=== PATIENT | female | born 2000 | race Asian ===

== ENCOUNTER 2024-04-11 17:55 | Emergency (ER) | payer BC, OTHER ==
--- NOTE | 2024-04-11 18:21 | ED.PDOC ---
History of Present Illness Time Seen by MD: 18:13 Allergies: Coded Allergies: Amoxicillin (Verified Allergy, Unknown, HIVES, 04/12/24) Home Meds Active Scripts Levofloxacin Hemihydrate (LEVOFLOXACIN) 750 Mg Tab, 750 MG PO DAILY for 7 Days, #7 TAB Prov:ADI HOOD RESIDENT 04/14/24 Departure 1 Departure Time of Disposition: 18:20 Impression: Primary Impression: Pneumothorax Comments 23-year-old female transferred from [place] with trace pneumothorax on CT scan, influenza A positive. Patient admitted for further treatment, evaluation and monitoring. REYNA GEORGE MD Apr 11, 2024 18:21
--- NOTE | 2024-04-11 18:59 | DVH ---
CHEST RADIOGRAPH Indication: Pneumothorax Technique: Frontal and lateral view of the chest was obtained Comparison: None FINDINGS: Lines and Tubes: None Lungs: Clear Pleura: No effusion. No pneumothorax. Cardiomediastinal contours: Unremarkable Bones: Unremarkable IMPRESSION: 1. No evidence of acute disease. 2. Further assessment could be performed with expiration film if clinically indicated.
== END 2024-04-11 18:22 | disposition home or self-care (01) ==
LOC: EDBD 17:55 → ER 18:02
DX: R06.02 Shortness of breath (principal); Z53.21 Procedure and treatment not carried out due to patient leaving prior to being seen by health care provider
CPT/HCPCS: 71046

== ENCOUNTER 2024-04-11 18:05 | Inpatient (IN) | payer BC, OTHER ==
[~2024-04-11] VITALS: Ht 160 cm; Wt 81.4 kg
[2024-04-11 18:05] VITALS: PULSE 81; RESP 12; O2SAT 98
--- NOTE | 2024-04-11 18:44 | ED.PDOC ---
History of Present Illness HPI Comments 23-year-old female who presented to [facility] with 1 day of shortness of breath and cough. She denied any chest pain. A CT angio was performed to rule out pulmonary embolism and patient was found to have a trace left-sided pneumothorax. Patient denies any significant past medical history. No history of lung disease. No history of pneumothorax in the past. Patient was transferred to [facility] for further treatment. Chief Complaint: Shortness of Breath Time Seen by MD: 18:37 Mode of Arrival: EMS Physical Exam General: Awake, alert and oriented. No acute distress. Skin: Skin in warm, dry and intact. Appropriate color for ethnicity. HEENT: Nasal cannula in place. The head is normocephalic and atraumatic. Conjunctivae are clear without exudates or hemorrhage. Sclera is non-icteric. EOM are intact. No signs of nystagmus. Eyelids are normal in appearance without swelling or lesions. Oral mucosa is pink and moist Neck: The neck is supple with normal range of motion. No JVD. Cardiac: Heart rate and rhythm are normal. No murmurs, gallops, or rubs are auscultated. Respiratory: No signs of respiratory distress. Lung sounds are clear in all lobes bilaterally without rales, ronchi, or wheezes. Abdominal: Abdomen is soft, non-tender without distention. Bowel sounds are present and normoactive in all four quadrants. Extremities: Upper and lower extremities are atraumatic in appearance without deformity or edema. Neurological: The patient is awake, alert and oriented to person, place, and time with normal speech. Speech is clear. There is no facial asymmetry. Psychiatric: Appropriate mood and affect. Good judgement and insight. No visual or auditory hallucinations. Review of Systems: REVIEW OF SYSTEMS: No fever, no chills, or fatigue HEENT: No sore throat, no earache, no congestion, no neck pain. Cardiac: No chest pain. No palpitations. Lungs: Positive shortness of breath, positive cough. GI: No nausea, no vomiting, no diarrhea, no constipation, no abdominal pain : No dysuria, frequency, or urgency. No hematuria. Musculoskeletal: No joint pain , no joint swelling, no extremity edema. Skin: No rash, no itching. Neuro: No headache, no dizziness, no weakness Was a procedure done? Was a procedure done?: No Differential Dx Considerations may include: Hypoxia, tension pneumothorax, spontaneous pneumothorax, Time of 1ST Reevaluation: 19:23 Reevaluation 1ST: Unchanged Patient Education/Counseling: Diagnosis, Treatment, Other (Need for admission) Family Education/Counseling: No Family Present Departure 1 Departure Time of Disposition: 18:39 Impression: Primary Impression: Pneumothorax Disposition: ADMITTED INPATIENT Condition: Stable Comments 23-year-old female transferred from [facility] with trace left pneumothorax and influenza infection. Notes, lab reports, imaging, EKG records from [facility] from today reviewed. No concerning abnormal results other than the influenza and trace pneumothorax. We will repeat chest x-ray to ensure no increase in size of the pneumothorax, Patient admitted for further treatment, evaluation and monitoring. REYNA GEORGE MD Apr 11, 2024 18:43
[2024-04-11 19:25] VITALS: O2SAT 98
--- NOTE | 2024-04-11 21:13 | DVHHPRES ---
History of Present Illness Resident Creating Document: JM CALLAHAN RESIDENT History of Present Illness Patient is a 24-year-old female with no significant past medical history who came in due to left upper quadrant pain and shortness of breaths that has been ongoing for the past 3 days. According to the patient, left upper quadrant pain 10/10 in intensity, constant in nature and stabbing in character, pain is worsened with deep inspiration. Denies having similar symptoms in the past. Patient also notes having flu-like symptoms including cough and fever for the past 1 week, sick contacts including multiple family members. Per patient, she had 3 episodes of vomiting with the most recent episode this morning containing blood in the vomitus. Patient was transferred from the [facility] where [facility] CT angio she was noted to have pneumomediastinum extending superiorly into the lower neck with suspected trace right pneumothorax, patchy left lower lobe airspace opacities & right upper lobe pulmonary nodule, most likely representing sequelae of infectious process: Differential include pneumonia, atypical pneumonia, viral chest and reactive airway disease. Past Medical History Denies Past Surgical History Cholecystectomy Past Social History Smoking: Patient currently uses vape for the past 7 years, prior to that was smoking for at least 1-2 years: 1 pack of cigarettes per day. Alcohol: Quit 3 weeks ago, prior to that was drinking every weekend 2-3 drinks Drugs: Denies Review of Systems Constitutional: Yes: Fever, Chills, Malaise; No: Sweats, Weakness, Other Eyes: No: Pain, Vision change, Conjunctivae inflammation, Eyelid inflammation, Other, Redness ENT: Nose discharge, Nose congestion, Throat pain; No: Ear pain, Ear discharge, Nose pain, Mouth pain, Mouth swelling, Throat swelling, Other Respiratory: Cough, Shortness of breath, SOB with excertion; No: Dry, Wheezing, Hemoptysis, Pleuritic Pain, Sputum, Wheezing, Other Cardiovascular: No: Chest Pain, Palpitations, Orthopnea, Paroxysmal Noc. Dyspnea, Edema, Lt Headedness, Other Gastrointestinal: Vomiting; No: Nausea, Abdominal Pain, Diarrhea, Constipation, Melena, Hematochezia, Other Genitourinary: No Dysuria, No Frequency, No Incontinence, No Hematuria, No Re tention, No Other Musculoskeletal: No: other, neck pain, shoulder pain, arm pain, back pain, hand pain, leg pain, foot pain Skin: No: Rash, Lesions, Jaundice, Bruising, Other Neurological: No: Weakness, Numbness, Incoordination, Change in speech, Confusion, Seizures, Other Allergies: Coded Allergies: Penicillins (Verified Allergy, Unknown, 04/11/24) Exam Vital Signs Vital Signs Date Time Temp Pulse Resp B/P (MAP) Pulse Ox O2 Delivery O2 Flow Rate FiO2 04/11/24 19:55 72 04/11/24 18:05 12 98 Nasal Cannula* 3 32 04/11/24 18:05 98.5 108/60 (76) 98.5 General Appearance: Alert, Oriented X3, Cooperative, mild distress HEENT: Atraumatic, PERRLA, EOMI, Mucous membr. moist/pink Respiratory: Other (Decreased breath sounds on the right) Cardiovascular: Regular rate, Normal S1, Normal S2, No murmurs Abdominal: Normal bowel sounds, Soft, No tenderness Extremities: No clubbing, No cyanosis, No edema, Normal pulses Skin: No rashes, No breakdown, No significant lesion Neuro: Normal speech, Strength at 5/5 X4 ext, Sensation intact Psych/Mental Status: Mental status NL, Mood NL Assessment/Plan Assessment/Plan Pneumomediastinum Trace right pneumothorax Possible atypical pneumonia - CT chest abdomen pelvis: Chest: Pneumomediastinum. This could be spontaneous in the setting of alveolar rupture and air dissection from the pulmonary interstitium to the mediastinum in the s etting of increased intrathoracic pressure. Mild bronchial wall thickening which could be infectious or inflammatory bronchitis. Scattered bilateral pulmonary nodules as well as cluster of tree-in-bud nodular opacities in the left lower lobe, likely atypical pneumonia. Abdomen/pelvis: No noncontrast evidence of acute abnormality. - ordered COVID and influenza testing - ordered barium esophagogram - patient NPO - azithromycin Nicotine dependence - counseled Goals of care: Full code, discussed for >16 minutes on 04/11/2024 Plan discussed with patient Plan discussed with Dr. Simpson Plan discussed with: Patient, Other (RN) My Orders Orders - JM CALLAHAN RESIDENT Procedure Category Date Status Time Oxygen By Nasal RT 04/11/24 Transmitted Cannula 21:05 Notify Of Changes BIGG 04/11/24 In Process From Base 21:05 Beta Hcg, Quantitative LAB 04/11/24 Logged 21:05 Electrocardigram EKG 04/11/24 Logged 21:05 Npo (Nothing By DIET 04/12/24 Transmitted Mouth) Diet Breakfast Complete Blood Count LAB 04/11/24 Logged 21:05 Basic Metabolic Panel LAB 04/11/24 Logged 21:05 Urinalysis LAB 04/11/24 Logged 21:05 Drug Screen LAB 04/11/24 Logged 21:05 Erythrocyte LAB 04/11/24 Logged Sedimentation Rate 21:05 C-Reactive Protein LAB 04/11/24 Logged 21:05 Thyroid Stimulating LAB 04/11/24 Logged Hormone 21:05 B-Type Natriuretic LAB 04/11/24 Logged Peptide 21:05 Rapid Influenza A&B LAB 04/11/24 Logged 21:05 Covid19 Antigen Priya LAB 04/11/24 Logged Admit ADMIT 04/11/24 Transmitted 21:12 Date of Service: Apr 11, 2024 Billing Provider: NICK SIMPSON MD Common Visit Codes: [id number] INP/OBS CARE (HIGH) JM CALLAHAN RESIDENT Apr 11, 2024 21:13 NICK SIMPSON MD Apr 12, 2024 09:06
[2024-04-11 21:37] LABS: Basophils # (auto) 0 10 ^3/uL (0-0.2); Basophils % (auto) 0.2 % (0.0-2.0); Eosinophils # (auto) 0.1 10 ^3/uL (0-0.8); Eosinophils % (auto) 0.6 % (0.0-7.0); Hematocrit 37.1 % (36.0-46.0); Hemoglobin 12.5 g/dL (12.2-16.2); Lymphocytes # (auto) 3.1 10 ^3/uL (0.4-5.4); Mean Corpuscular Hemoglobin 29.6 pg (28.0-32.0); Mean Corpuscular Hgb Conc. 33.7 g/dL (32.0-36.0); Mean Corpuscular Volume 87.8 fL (80.0-100.0); Monocytes # (auto) 0.8 10 ^3/uL (0-1.3); Monocytes % (auto) 7.8 % (0.0-12.0); Neutrophils # (auto) 5.8 10 ^3/uL (1.6-8.6); Neutrophils % (auto) 59.4 % (37.0-80.0); Nucleated Red Blood Cells % 0.1 %; Platelet Count (auto) 199 10^3/uL (140-450); Red Blood Cells 4.23 10^6/uL (4.0-5.20); White Blood Cell 9.8 10^3/uL (4.4-10.8)
[2024-04-11 21:47] LABS: Potassium 3.6 mmol/L (3.5-5.1); Sodium 141 mmol/L (136-145)
[2024-04-11 21:48] LABS: Anion Gap 8 (5-15); Calcium 8.8 mg/dL (8.7-10.4); Carbon Dioxide 24 mmol/L (20-31)
[2024-04-11 21:53] LABS: Glucose 81 mg/dL (74-106)
[2024-04-11 21:54] LABS: CRP High Sensitivity 0.98 mg/dL (<1.0)
[2024-04-11 22:01] LABS: Chloride 109 mmol/L (98-107)
[2024-04-11 22:02] LABS: Blood Urea Nitrogen 8 mg/dL (9-23)
[2024-04-11 22:07] LABS: Thyroid Stimulating Hormone 0.6 uIU/mL (0.55-4.78)
[2024-04-11 22:17] LABS: COVID19 ANTIGEN SOFIA FIA NEGATIVE (NEGATIVE); Rapid Influenza A Negative (Negative); Rapid Influenza B Negative (Negative)
[2024-04-11 22:17] LABS: Beta HCG, Quantitative 0.6 mIU/mL (1.5-4.2)
[2024-04-11 22:44] LABS: Erythrocyte Sedimentation Rate 25 mm/hr (0-20)
[2024-04-12] VITALS (14 sets, daily range): BP systolic 96–109; BP diastolic 55–72; PULSE 60–77; RESP 14–18; TEMP 97.6–98.6; O2SAT 96–100
--- NOTE | 2024-04-12 01:15 | DVH ---
CLINICAL HISTORY: pnemomediastinum TECHNIQUE: CT of the chest, abdomen and pelvis was performed without IV contrast. This exam was perf ormed according to our departmental dose optimization program. Up-to-date CT equipment and radiation dose reduction techniques are utilized as appropriate. [[employer]imetric[employer] Exposure Report] CTDI: 15.75 DLP: 1087 COMPARISON: None FINDINGS: CHEST FINDINGS: Lower Neck: Pneumomediastinum extending into the lower neck Axilla, Mediastinum and Dorothy: There is pneumomediastinum. There is no axillary or mediastinal lymphad enopathy. Residual thymic tissue in the anterior mediastinum. Limited evaluation of the dorothy in the absence of intravenous contrast. Heart and Great Vessels: Trachea and central airways are patent. Mild bronchial wall thickening. Line ar scarring or atelectasis in the lingula. Scattered nodules are seen in both lungs as well as a clus ter of tree-in-bud nodular opacities in the left lower lobe. No pleural effusion or pneumothorax. Airway, Lungs and Pleura: No destructive osseous lesion. No acute abnormality. Chest Wall and Osseous Structures: Unremarkable. Abdomen and Pelvis Findings: Liver and Biliary system: Prior cholecystectomy. Otherwise unremarkable. Spleen: Unremarkable. Adrenal Glands and Kidneys: Unremarkable. Excretion of contrast into the bilateral renal collecting systems Pancreas and Retroperitoneum: Unremarkable. Aorta and Major Vessels: Unremarkable. Bowel, Mesentery and Peritoneal space: Normal caliber small and large bowel. Normal appendix. No free air or fluid collection. Pelvis: There is a tampon in the vagina. The uterus and ovaries are grossly unremarkable. Urinary bety dder is filled with excreted contrast. There is no pelvic lymphadenopathy. Abdominal wall and Osseous Structures: No destructive osseous lesion. IMPRESSION: Chest: * Pneumomediastinum. This could be spontaneous in the setting of alveolar rupture and air dissection from the pulmonary interstitium to the mediastinum in the setting of increased intrathoracic pressure . * Mild bronchial wall thickening which could be infectious or inflammatory bronchitis. * Scattered bilateral pulmonary nodules as well as cluster of tree-in-bud nodular opacities in the le ft lower lobe, likely atypical pneumonia. Abdomen/pelvis: * No noncontrast evidence of acute abnormality.
--- NOTE | 2024-04-12 09:27 | DVH ---
XY ESOPHAGUS GASTROGRAFIN SWALLOW, HISTORY: ESOPHAGEAL RUPTURE COMPARISON: None PROCEDURE: A care management assistant radiograph was obtained prior to the procedure. Gastrografin. administered orally , and radiographs were obtained under intermittent fluoroscopic observation. Total fluoroscopic time was 1.0. DAP 292. FINDINGS: The esophagus was normal in caliber with no stricture, filling defect or wall irregularity demonstrat ed. Normal esophageal peristalsis was observed. No esophageal reflux was demonstrated during this exam despite provocative maneuvers. IMPRESSION: Normal esophagram. Limited exam due to patient coughing and gagging when drinking contrast material.
[2024-04-12] MEDS ORDERED: ALBUTEROL SULF 2.5 MG/0.5ML(0.5%) NEB SOLN NEB SCH (10:00)
[2024-04-12] MEDS: cefTRIAXone 1GM/50ML D5W 50 ML IV SCH (11:54)
[2024-04-12] MEDS: AZITHROMYCIN 500MG/ 250ML 250 ML IV SCH (12:02)
[2024-04-12] MEDS: ALBUTEROL SULF 2.5 MG/0.5ML(0.5%) NEB SOLN NEB SCH (14:24)
[2024-04-12] MEDS ORDERED: HYDROcodone-ACET 5/325MG TAB PO PRN (14:45)
[2024-04-12] MEDS ORDERED: ACETAMINOPHEN 325 MG TAB PO PRN (14:45)
--- NOTE | 2024-04-12 15:01 | DVHPNRES ---
Progress Note Date Seen: Apr 12, 2024 Resident Creating Document: ADI HOOD RESIDENT Has the PT tested + for MRSA If YES, has PT been informed?: No Medical Necessity Reason Pt with a Central, PICC or Fol: No Subjective Review of Systems A 24-year-old female with no significant past medical history who came in due to left upper quadrant pain and shortness of breaths that has been ongoing for the past 3 days. According to the patient, left upper quadrant pain 10/10 in intensity, constant in nature and stabbing in character, pain is worsened with deep inspiration. Denies having similar symptoms in the past. Patient also notes having flu-like symptoms including cough and fever for the past 1 week, sick contacts including multiple family members. Per patient, she had 3 episodes of vomiting with the most recent episode this morning containing blood in the vomitus. Patient was transferred from the [facility] where on CT angio she was noted to have pneumomediastinum extending superiorly into the lower neck with suspected trace right pneumothorax, patchy left lower lobe airspace opacities & right upper lobe pulmonary nodule, most likely representing sequelae of infectious process: Differential include pneumonia, atypical pneumonia, viral chest and reactive airway disease. Past Medical History Denies Past Surgical History Cholecystectomy Past Social History Smoking: Patient currently uses vape for the past 7 years, prior to that was smoking for at least 1-2 years: 1 pack of cigarettes per day. Alcohol: Quit 3 weeks ago, prior to that was drinking every weekend 2-3 drinks Drugs: Denies Objective vital signs Vital Sign Date Time Temp Pulse Resp B/P (MAP) Pulse Ox O2 Delivery O2 Flow Rate FiO2 04/12/24 14:30 77 16 100 04/12/24 14:24 Nasal Cannula 0.5 04/12/24 14:24 24 04/12/24 13:00 98.0 101/61 (74) 98.0 Total Intake and Output 04/11/24 04/11/24 04/12/24 15:00 23:00 07:00 Intake Total 0 ml Balance 0 ml medications Current Medications Medications Dose Ordered Sig/Alexsandra Route Start Time Stop Time Status Last Admin Dose Admin Azithromycin 250 ml @ 125 mls/hr DAILY IV 04/12/24 10:00 04/12/24 12:02 125 MLS/HR Ceftriaxone Sodium 50 ml @ 100 mls/hr DAILY@09 IV 04/12/24 09:00 Albuterol 2.5 mg Q8HR NEB 04/12/24 14:00 04/12/24 14:24 2.5 MG Acetaminophen 650 mg Q6HP PRN PO 04/12/24 14:45 UNV Acetaminophen/ Hydrocodone Bitart 1 tab Q4HPRN PRN PO 04/12/24 14:45 UNV Examination General Appearance: Alert, Oriented X3, Cooperative, mild distress HEENT: Atraumatic, PERRLA, EOMI, Mucous membr. moist/pink Respiratory: Other (Decreased breath sounds on the right) Cardiovascular: Regular rate, Normal S1, Normal S2, No murmurs Abdominal: Normal bowel sounds, Soft, No tenderness Extremities: No clubbing, No cyanosis, No edema, Normal pulses Skin: No rashes, No breakdown, No significant lesion Neuro: Normal speech, Strength at 5/5 X4 ext, Sensation intact Psych/Mental Status: Mental status NL, Mood NL laboratory and microbiology Laboratory Tests 04/11/24 21:30 Test 04/11/24 21:30 Range/Units Serum Glucose 81 74-106 mg/dL Problem List/Assessment/Plan Problem List/Assessment/Plan #Pneumomediastinum #Trace right pneumothorax #Possible atypical pneumonia O2 at 2 lt please dont titrate down: is for reabsorption of the pneumothorax and pneumomediastinum - CT chest abdomen pelvis: Chest: Pneumomediastinum. This could be spontaneous in the setting of alveolar rupture and air dissection from the pulmonary interstitium to the mediastinum in the setting of increased intrathoracic pressure. Mild bronchial wall thickening which could be infectious or inflammatory bronchitis. Scattered bilateral pulmonary nodules as well as cluster of tree-in-bud nodular opacities in the left lower lobe, likely atypical pneumonia. Abdomen/pelvis: No noncontrast evidence of acute abnormality. COVID and influenza testing: negative Barium esophagogram: negative no rupture regular diet Continue azithromycin Pulmonology consult placed Breathing treatments Nicotine dependence - counseled Goals of care: Full code, discussed for >16 minutes on 04/11/2024 Plan discussed with patient Plan discussed with Dr. Sanz Plan discussed with: Patient, Other (rn) My Orders My Orders Orders - ADI HOOD RESIDENT Procedure Category Date Status Time Azithromycin 500mg/ PHA 04/12/24 In Process 250ml (Zithromax 50 10:00 Ceftriaxone 1gm/50ml PHA 04/12/24 In Process D5w (Rocephin) 09:00 Albuterol Medneb PHA 04/12/24 In Process (Ventolin Medneb) 14:00 *Consult CONS 04/12/24 Transmitted / 09:50 Regular Diet DIET 04/12/24 Transmitted Lunch Acetaminophen Tablet PHA 04/12/24 Logged (Tylenol Tablet) 14:45 Hydrocodone-Acet PHA 04/12/24 Logged 5/325mg Tab ([place] 14:45 Date of Service: Apr 12, 2024 Billing Provider: EDOUARD SANZ MD Common Visit Codes: [id number] INP/OBS CARE(HIGH) ADI HOOD RESIDENT Apr 12, 2024 15:01 EDOUARD SANZ MD Apr 12, 2024 15:38
[2024-04-12 18:18] LABS: Urine Bacteria FEW /hpf (None Seen); Urine Blood 2+ /uL (Negative); Urine Clarity Clear (Clear); Urine Color Yellow (Yellow); Urine Mucus FEW (None Seen); Urine Protein, UAD 1+ (Negative); Urine Specific Gravity 1.033 (1.001-1.035); Urine Squamous Epithelial Cell FEW /hpf (<5); Urine Urobilinogen 2 mg/dL (Negative); Urine WBC 5 /hpf (0 - 5)
[2024-04-12 18:24] LABS: Amphetamine Screen, Urine Neg (NEGATIVE)
[2024-04-12 18:25] LABS: Cannabinoid Screen, Urine Pos (NEGATIVE)
[2024-04-12 18:26] LABS: Barbiturate Scree,Urine Neg (NEGATIVE); Benzodiazephine Screen, Urine Neg (NEGATIVE); Cocaine Screen, Urine Neg (NEGATIVE); Opiate Scree,Urine Neg (NEGATIVE); Phencyclidine Screen, Urine Neg (NEGATIVE)
--- NOTE | 2024-04-12 23:50 | DVHINCON2 ---
Date of service: Apr 12, 2024 Referring Physician Audra Guerrero MD Reason for Consultation Pneumomediastinum, pneumothorax. History of Present Illness A 24-year-old woman with no significant past medical history who presented to ED on 04/11/24 due to left upper quadrant pain and shortness of breath ongoing x3 days. Patient c/o left upper quadrant pain 10/10 in intensity, constant in nature and stabbing in character, worse with deep inspiration. Denied similar symptoms in the past. Patient also c/o flu-like symptoms including cough and fever for the past 1 week, sick contacts including multiple family members. Per patient, she had 3 episodes of vomiting with the most recent episode AM of presentation, containing blood in the vomitus. Patient was transferred from the [facility] where on CT angio she was noted to have pneumomediastinum extending superiorly into the lower neck with suspected trace right pneumothorax, patchy left lower lobe airspace opacities & right upper lobe pulmonary nodule, most likely representing sequelae of infectious process: Differential includes pneumonia, atypical pneumonia, viral chest and reactive airway disease. Patient was admitted for further care and pulmonary consultation is requested for evaluation and management due to the above findings. Review of Systems: 14-point review of systems negative unless otherwise noted above. Past Medical History: Denies Past Surgical History: Cholecystectomy Medications: Reviewed. Allergies: Amoxicillin Family History: Diabetes Social History: Smoking: Currently vaping for the past 7 years, prior to that was smoking for at least 1-2 years (1 pack of cigarettes per day). Alcohol: Quit 3 weeks ago, prior to that was drinking every weekend 2-3 drinks No illicit drug use. Family History: Diabetes mellitus G8 FATHER Allergies: Coded Allergies: Amoxicillin (Verified Allergy, Unknown, HIVES, 04/12/24) Home Meds No Active Prescriptions or Reported Meds Current Medications Current Medications Medications (Trade) Dose Ordered Sig/Alexsandra Route PRN Reason Start Time Stop Time Status Last Admin Azithromycin 250 ml @ 125 mls/hr DAILY IV 04/12/24 10:00 04/12/24 12:02 Albuterol (Ventolin Medneb) 2.5 mg Q8HR NEB 04/12/24 10:00 04/12/24 09:00 DC Ceftriaxone Sodium 50 ml @ 100 mls/hr DAILY@09 IV 04/12/24 09:00 04/12/24 14:58 DC Albuterol (Ventolin Medneb) 2.5 mg Q8HR NEB 04/12/24 14:00 04/12/24 22:26 Acetaminophen (Tylenol Tablet) 650 mg Q6HP PRN PO MILD PAIN (1-3 PAIN SCALE) 04/12/24 14:45 Acetaminophen/ Hydrocodone Bitart ([place] 5/325MG Tab) 1 tab Q4HPRN PRN PO MODERATE PAIN (4-6 PAIN SCALE) 04/12/24 14:45 Vital Signs Vital Signs Date Time Temp Pulse Resp B/P (MAP) Pulse Ox O2 Delivery O2 Flow Rate FiO2 04/12/24 22:36 67 18 100 04/12/24 22:29 Nasal Cannula 2.0 04/12/24 22:29 28 04/12/24 21:00 98.0 105/55 (72) 98.0 Physical Exam Gen.: Patient lying in bed in no apparent distress. On supplemental oxygen. Head: Normocephalic, atraumatic. Eyes: EOMI/PERRLA. Ears: Normal hearing. Normal anatomy. Neck/trachea: Trachea midline, supple. Nose: Normal external anatomy. Mouth: Moist mucous membranes. Chest: Decreased air entry bilaterally. No wheezing or rhonchi. Cardiovascular: Positive S1, positive S2. Regular rate and rhythm. Abdomen: Positive bowel sounds in all 4 quadrants. Soft, non-tender, non- distended. : Deferred. Rectal: Deferred. Skin: Warm, dry. Intact. Extremities: 2+ radial pulses bilaterally. No lower extremity edema. Neuro: Awake, alert, oriented x3. No gross motor or sensory deficits. Cranial nerves II through XII intact. Gait not assessed. Labs/Diagnostic Data Labs Test 04/12/24 17:51 04/11/24 21:50 04/11/24 21:30 Range/Units Urine Color Yellow Yellow Urine Clarity Clear Clear Urine pH 6.0 5.0-9.0 Urine Specific [place] 1.033 1.001-1.035 Urine Protein 1+ H Negative Urine Ketones 4+ H Negative Urine Blood 2+ H Negative /uL Urine Nitrite Negative Negative Urine Bilirubin Negative Negative Urine Urobilinogen 2 H Negative mg/dL Urine Leukocyte Esterase Negative Negative /uL Urine RBC 2 0 - 4 /hpf Urine WBC 5 0 - 5 /hpf Urine Squamous Epithelial Cells Few <5 /hpf Urine Bacteria Few H None Seen /hpf Urine Mucus Few None Seen Urine Glucose Normal Normal mg/dL Urine Opiates Screen Neg NEGATIVE Urine Fentanyl Screen Neg NEGATIVE Urine Barbiturates Screen Neg NEGATIVE Urine Phencyclidine Screen Neg NEGATIVE Urine Amphetamines Screen Neg NEGATIVE Urine Benzodiazepines Screen Neg NEGATIVE Urine Cocaine Screen Neg NEGATIVE Urine Cannabinoids Screen Pos NEGATIVE Influenza Type A Antigen Negative Negative Influenza Type B Antigen Negative Negative SARS-CoV-2 Antigen (Rapid) Negative NEGATIVE White Blood Count 9.8 4.4-10.8 10^3/uL Red Blood Count 4.23 4.0-5.20 10^6/uL Hemoglobin 12.5 12.2-16.2 g/dL Hematocrit 37.1 36.0-46.0 % Mean Corpuscular Volume 87.8 80.0-100.0 fL Mean Corpuscular Hemoglobin 29.6 28.0-32.0 pg Mean Corpuscular Hemoglobin Concent 33.7 32.0-36.0 g/dL Red Cell Distribution Width 14.0 11.8-14.3 % Platelet Count 199 140-450 10^3/uL Mean Platelet Volume 9.5 6.9-10.8 fL Neutrophils (%) (Auto) 59.4 37.0-80.0 % Lymphocytes (%) (Auto) 32.0 10.0-50.0 % Monocytes (%) (Auto) 7.8 0.0-12.0 % Eosinophils (%) (Auto) 0.6 0.0-7.0 % Basophils (%) (Auto) 0.2 0.0-2.0 % Neutrophils # (Auto) 5.8 1.6-8.6 10 ^3/uL Lymphocytes # (Auto) 3.1 0.4-5.4 10 ^3/uL Monocytes # (Auto) 0.8 0-1.3 10 ^3/uL Eosinophils # (Auto) 0.1 0-0.8 10 ^3/uL Basophils # (Auto) 0 0-0.2 10 ^3/uL Nucleated Red Blood Cells 0.1 % Erythrocyte Sedimentation Rate 25 H 0-20 mm/hr Sodium Level 141 136-145 mmol/L Potassium Level 3.6 3.5-5.1 mmol/L Chloride Level 109 H 98-107 mmol/L Carbon Dioxide Level 24 20-31 mmol/L Anion Gap 8 5-15 Blood Urea Nitrogen 8 L 9-23 mg/dL Creatinine 0.73 0.550-1.02 mg/dL Glomerular Filtration Rate Calc 117 >90 mL/min BUN/Creatinine Ratio 11.0 10.0-20.0 Serum Glucose 81 74-106 mg/dL Calcium Level 8.8 8.7-10.4 mg/dL C-Reactive Protein High Sensitivity 0.98 <1.0 mg/dL B-Type Natriuretic Peptide 11.12 0-100 pg/mL Thyroid Stimulating Hormone (TSH) 0.60 0.55-4.78 uIU/mL Beta HCG, Quantitative 0.6 L 1.5-4.2 mIU/mL Assessment Impression: Trace right pneumothorax Pneumomediastinum Nicotine dependence/vaping Possible atypical pneumonia Obesity BMI 31.8 Atypical pneumonia O2 at 2 L for reabsorption of the pneumothorax and pneumomediastinum -please do not titrate down Plan: Supplemental oxygen 2 LPM NC Keep O2 sats between 98-100%. CT chest, abdomen and pelvis: Pneumomediastinum. This could be spontaneous in the setting of alveolar rupture and air dissection from the pulmonary interstitium to the mediastinum in the setting of increased intrathoracic pressure. Mild bronchial wall thickening which could be infectious or inflammatory bronchitis. Scattered bilateral pulmonary nodules as well as cluster of tree-in-bud nodular opacities in the left lower lobe, likely atypical pneumonia. Bronchodilators PRN Continue antibiotics for atypical pneumonia Incentive spirometry Pain control Avoid oversedation Cessation of vaping discussed for more than 10 minutes Monitor renal function. Monitor electrolytes. Supplement as necessary. Monitor ins and outs. DVT prophylaxis. Prognosis: Poor given patient's multiple co-morbidities. Rest of plan per hospitalist and other consultants. Thank you, Dr. Guerrero, for allowing me to participate in this patient's care. Further recommendations will depend on the patient's clinical course. Please do not hesitate to contact me if you have any questions or concerns. This medical document was created using an electronic medical record system with [employer] system. Although these documentations are being carefully reviewed, there may still be some phonetic and typographical changes. The errors are purely typographical, due to imperfection on the software program, and do not reflect any compromise in the patient's medical care. Plan discussed with: Patient, Other (ROGERS Martinez/MD Guerrero) GUS DALE MD Apr 12, 2024 23:50
[2024-04-13] VITALS (15 sets, daily range): BP systolic 90–110; BP diastolic 48–70; PULSE 54–98; RESP 16–19; TEMP 97.6–98; O2SAT 95–100
[2024-04-13] MEDS: guaiFENesin-DM 100/10mg/5ml SYR PO ONE (04:48)
[2024-04-13] MEDS ORDERED: guaiFENesin-DM 100/10mg/5ml SYR PO PRN (14:30)
--- NOTE | 2024-04-13 14:50 | DVHPNRES ---
Progress Note Date Seen: Apr 13, 2024 Resident Creating Document: MELBA ASHLEY RESIDENT Has the PT tested + for MRSA If YES, has PT been informed?: No Medical Necessity Reason Pt with a Central, PICC or Fol: No Subjective Review of Systems A 24-year-old female with no significant past medical history who came in due to left upper quadrant pain and shortness of breaths that has been ongoing for the past 3 days. According to the patient, left upper quadrant pain 10/10 in intensity, constant in nature and stabbing in character, pain is worsened with deep inspiration. Denies having similar symptoms in the past. Patient also notes having flu-like symptoms including cough and fever for the past 1 week, sick contacts including multiple family members. Per patient, she had 3 episodes of vomiting with the most recent episode this morning containing blood in the vomitus. Patient was transferred from the [facility] where on CT angio she was noted to have pneumomediastinum extending superiorly into the lower neck with suspected trace right pneumothorax, patchy left lower lobe airspace opacities & right upper lobe pulmonary nodule, most likely representing sequelae of infectious process: Differential include pneumonia, atypical pneumonia, viral chest and reactive airway disease. Past Medical History: none Past Surgical History: Cholecystectomy Past Social History Smoking: Patient currently uses vape for the past 7 years, prior to that was smoking for at least 1-2 years: 1 pack of cigarettes per day. Alcohol: Quit 3 weeks ago, prior to that was drinking every weekend 2-3 drinks Drugs: Denies Review of systems Patient was seen and examined at the bedside Reports bouts of coughing but otherwise no shortness of breath, chest pain, dizziness, palpitations, headache. Reports that last night she had a couple of episodes of loose stools. Objective vital signs Vital Sign Date Time Temp Pulse Resp B/P (MAP) Pulse Ox O2 Delivery O2 Flow Rate FiO2 04/13/24 14:31 76 16 98 04/13/24 09:00 97.9 90/49 (63) 97.9 04/13/24 07:04 Nasal Cannula* 2 28 Total Intake and Output 04/12/24 04/12/24 04/13/24 15:00 23:00 07:00 Intake Total 250 ml 600 ml 800 ml Balance 250 ml 600 ml 800 ml medications Current Medications Medications Dose Ordered Sig/Alexsandra Route Start Time Stop Time Status Last Admin Dose Admin Azithromycin 250 ml @ 125 mls/hr DAILY IV 04/12/24 10:00 04/13/24 10:26 125 MLS/HR Albuterol 2.5 mg Q8HR NEB 04/12/24 14:00 04/13/24 14:31 2.5 MG Acetaminophen 650 mg Q6HP PRN PO 04/12/24 14:45 Acetaminophen/ Hydrocodone Bitart 1 tab Q4HPRN PRN PO 04/12/24 14:45 Guaifenesin/ Dextromethorphan 10 ml Q6HP PRN PO 04/13/24 14:30 UNV Examination General Appearance: Alert, Oriented X3, Cooperative, mild distress HEENT: Atraumatic, PERRLA, EOMI, Mucous membr. moist/pink Respiratory: Other (Decreased breath sounds on the right) Cardiovascular: Regular rate, Normal S1, Normal S2, No murmurs Abdominal: Normal bowel sounds, Soft, No tenderness Extremities: No clubbing, No cyanosis, No edema, Normal pulses Skin: No rashes, No breakdown, No significant lesion Neuro: Normal speech, Strength at 5/5 X4 ext, Sensation intact Psych/Mental Status: Mental status NL, Mood NL laboratory and microbiology Laboratory Tests 04/11/24 21:30 Test 04/11/24 21:30 Range/Units Serum Glucose 81 74-106 mg/dL Problem List/Assessment/Plan Problem List/Assessment/Plan #Pneumomediastinum #Trace right pneumothorax #Possible atypical pneumonia O2 at 2 lt please dont titrate down: for reabsorption of the pneumothorax and pneumomediastinum - CT chest abdomen/pelvis Chest :Pneumomediastinum. This could be spontaneous in the setting of alveolar rupture and air dissection from the pulmonary interstitium to the mediastinum in the setting of increased intrathoracic pressure. Mild bronchial wall thickening which could be infectious or inflammatory bronchitis. Scattered bilateral pulmonary nodules as well as cluster of tree-in-bud nodular opacities in the left lower lobe, likely atypical pneumonia. Abdomen/pelvis: No noncontrast evidence of acute abnormality. COVID and influenza testing: negative Barium esophagogram: negative no rupture regular diet Continue azithromycin Pulmonology consulted, recommendations followed Breathing treatments as needed robitussin for suppressing cough CT chest with contrast to be done tomorrow in the morning for follow up. Nicotine dependence - counseled Goals of care discussed with the patient for over 19 minutes. Full code Plan discussed with Dr. Rachel Plan discussed with: Patient My Orders My Orders Orders - MELBA ASHLEY Procedure Category Date Status Time Guaifenesin-Dextromet PHA 04/13/24 Logged Liquid (Robitussin 14:[address] 04/14/24 Logged 07:00 Date of Service: Apr 13, 2024 Billing Provider: DARLENE RACHEL MD Common Visit Codes: [id number] INP/OBS CARE(HIGH) MELBA ASHLEY RESIDENT Apr 13, 2024 14:50 DARLENE RACHEL MD Apr 13, 2024 23:12
[2024-04-13] MEDS: guaiFENesin-DM 100/10mg/5ml SYR PO SCH (16:50)
[2024-04-13] MEDS: GASTROGRAFIN 120 ML SOL ONE ×2 (17:13→17:14)
--- NOTE | 2024-04-13 21:24 | DVHPN2 ---
Progress Note - Dictate Date Seen: Apr 13, 2024 Has the PT tested + for MRSA If YES, has PT been informed?: No Medical Necessity Reason Pt with a Central, PICC or Fol: No Subjective Patient seen and examined at bedside. Remains on supplemental oxygen Overnight events reviewed. vital signs Vital Sign Date Time Temp Pulse Resp B/P (MAP) Pulse Ox O2 Delivery O2 Flow Rate FiO2 04/13/24 17:00 98.0 85 18 107/55 (72) 100 98.0 04/13/24 10:00 Nasal Cannula* 2 28 Total Intake and Output 04/12/24 04/12/24 04/13/24 15:00 23:00 07:00 Intake Total 250 ml 600 ml 800 ml Balance 250 ml 600 ml 800 ml medications Current Medications Medications Dose Ordered Sig/Alexsandra Route Start Time Stop Time Status Last Admin Dose Admin Azithromycin 250 ml @ 125 mls/hr DAILY IV 04/12/24 10:00 04/13/24 10:26 125 MLS/HR Albuterol 2.5 mg Q8HR NEB 04/12/24 14:00 04/13/24 19:31 2.5 MG Acetaminophen 650 mg Q6HP PRN PO 04/12/24 14:45 Acetaminophen/ Hydrocodone Bitart 1 tab Q4HPRN PRN PO 04/12/24 14:45 Guaifenesin/ Dextromethorphan 10 ml Q6H PO 04/13/24 15:00 04/13/24 16:50 10 ML objective Gen.: Patient lying in bed in no apparent distress. On supplemental oxygen. Head: Normocephalic, atraumatic. Eyes: EOMI/PERRLA. Ears: Normal hearing. Normal anatomy. Neck/trachea: Trachea midline, supple. Nose: Normal external anatomy. Mouth: Moist mucous membranes. Chest: Decreased air entry bilaterally. No wheezing or rhonchi. Cardiovascular: Positive S1, positive S2. Regular rate and rhythm. Abdomen: Positive bowel sounds in all 4 quadrants. Soft, non-tender, non- distended. : Deferred. Rectal: Deferred. Skin: Warm, dry. Intact. Extremities: 2+ radial pulses bilaterally. No lower extremity edema. Neuro: Awake, alert, oriented x3. No gross motor or sensory deficits. Cranial nerves II through XII intact. Gait not assessed laboratory and microbiology Laboratory Tests 04/11/24 21:30 Test 04/11/24 21:30 Range/Units Serum Glucose 81 74-106 mg/dL Assessment/Plan Impression: Trace right pneumothorax Pneumomediastinum Nicotine dependence/vaping Obesity BMI 31.8 Atypical pneumonia O2 at 2 L for reabsorption of the pneumothorax and pneumomediastinum -please do not titrate down Events: Remains on supplemental oxygen, 2 LPM NC Plan to obtain CT chest without contrast. Continue antibiotics Incentive spirometry Antitussive PRN Pain control Avoid oversedation Labs and imaging reviewed. Rest of plan as noted below. Plan: Supplemental oxygen 2 LPM NC Keep O2 sats between 98-100%. CT chest, abdomen and pelvis: Pneumomediastinum. This could be spontaneous in the setting of alveolar rupture and air dissection from the pulmonary interstitium to the mediastinum in the setting of increased intrathoracic pressure. Mild bronchial wall thickening which could be infectious or inflammatory bronchitis. Scattered bilateral pulmonary nodules as well as cluster of tree-in-bud nodular opacities in the left lower lobe, likely atypical pneumonia. Bronchodilators PRN Continue antibiotics for atypical pneumonia Incentive spirometry Pain control Avoid oversedation Cessation of vaping discussed for more than 10 minutes Monitor renal function. Monitor electrolytes. Supplement as necessary. Monitor ins and outs. DVT prophylaxis. Prognosis: Poor given patient's multiple co-morbidities. Rest of plan per hospitalist and other consultants. Thank you, Dr. Guerrero, for allowing me to participate in this patient's care. Further recommendations will depend on the patient's clinical course. Please do not hesitate to contact me if you have any questions or concerns. This medical document was created using an electronic medical record system with [employer] dictation system. Although these documentations are being carefully reviewed, there may still be some phonetic and typographical changes. The errors are purely typographical, due to imperfection on the software program, and do not reflect any compromise in the patient's medical care. Plan discussed with: Patient, Other (ROGERS Martinez) GUS DALE MD Apr 13, 2024 21:24
[2024-04-14] VITALS (12 sets, daily range): BP systolic 92–101; BP diastolic 61–96; PULSE 53–83; RESP 14–20; TEMP 97.8–98.7; O2SAT 95–100
[2024-04-14] MEDS ORDERED: IOHEXOL 300 MG/ML 100ML BOTTLE IJ ONE (09:54)
[2024-04-14 11:13] LABS: Basophils # (auto) 0 10 ^3/uL (0-0.2); Basophils % (auto) 0.2 % (0.0-2.0); Eosinophils # (auto) 0.4 10 ^3/uL (0-0.8); Eosinophils % (auto) 7.7 % (0.0-7.0); Hematocrit 37.2 % (36.0-46.0); Hemoglobin 12.2 g/dL (12.2-16.2); Lymphocytes # (auto) 1.4 10 ^3/uL (0.4-5.4); Lymphocytes % (auto) 25.2 % (10.0-50.0); Mean Corpuscular Hemoglobin 28.9 pg (28.0-32.0); Mean Corpuscular Hgb Conc. 32.7 g/dL (32.0-36.0); Mean Corpuscular Volume 88.2 fL (80.0-100.0); Monocytes # (auto) 0.4 10 ^3/uL (0-1.3); Monocytes % (auto) 6.9 % (0.0-12.0); Neutrophils # (auto) 3.4 10 ^3/uL (1.6-8.6); Nucleated Red Blood Cells % 0.1 %; Platelet Count (auto) 250 10^3/uL (140-450); Red Blood Cells 4.22 10^6/uL (4.0-5.20); Red Cell Distribution Width 13.5 % (11.8-14.3); White Blood Cell 5.6 10^3/uL (4.4-10.8)
[2024-04-14 11:30] LABS: Alanine Aminotransferase 19 U/L (7-40); Albumin 3.7 g/dL (3.2-4.8); Alkaline Phosphatase 57 U/L (46-116); Anion Gap 6 (5-15); Aspartate Aminotransferase 26 U/L (13-40); Bilirubin, Total 0.3 mg/dL (0.2-1.0); Calcium 9.4 mg/dL (8.7-10.4); Carbon Dioxide 24 mmol/L (20-31); Sodium 138 mmol/L (136-145)
[2024-04-14 11:42] LABS: BUN/Creatinine Ratio 7.7 (10.0-20.0); Blood Urea Nitrogen < 5 mg/dL (9-23); Chloride 108 mmol/L (98-107); Glucose 112 mg/dL (74-106)
--- NOTE | 2024-04-14 14:20 | DVH ---
Procedure: CT CHEST WITH CONTRAST Reason for study/Clinical History: follow up imaging for pneumothorax, pneumomediastinum Comparison Study: CT chest/abdomen/ pelvis 04/11/2024 Exam Date: 04/14/2024 01:17 PM Radiation Dose Information: CT Dose: CTDI volume is 12.29 mGy. Dose-length product is 400.27 mGy*cm Contrast: 100 mL [id number] TECHNIQUE: After the uneventful administration of intravenous contrast intravenously, CT imaging was performed through the chest. Coronal and sagittal reformations were performed by the technologist. Im ages were reviewed at a workstation with MPR capabilities with review of coronal and sagittal MIP rec onstructions. FINDINGS: Lower Neck: Visualized portions of the thyroid gland are unremarkable. Aorta and Vasculature: Normal caliber of thoracic aorta. No evidence of large or segmental pulmonary emboli. Lymph Nodes: No enlarged intrathoracic lymph nodes. Mediastinum: Heart size is normal. There is no pericardial effusion. There is a small amount of pneum omediastinum which is decreased compared to 04/11/2024. There is mild interspersed soft tissue densit y within the anterior mediastinum which is similar from prior. Lungs: 4 x 3 mm nodule at the right lung apex is similar from prior. A few small ground-glass nodule s in the left lower lung are similar from prior. No evidence of new pulmonary consolidation. Musculoskeletal: No acute osseous abnormality. Upper abdomen: Status post cholecystectomy. IMPRESSION: Small amount of pneumomediastinum is decreased compared to 04/11/2024. No evidence of pneumothorax. Mild interspersed soft tissue density in the anterior mediastinum is similar from prior and likely re presents residual thymic tissue. Mediastinitis is considered unlikely. Scattered pulmonary nodules are similar from prior and may be related to aspiration or atypical pneu monia. All CT scans at this medical facility are performed using dose modulation techniques as appropriate t o a performed exam including the following: Automated exposure control was utilized; adjustment of th e MA and/or KV according to patient size; and use of iterative reconstruction technique.
--- NOTE | 2024-04-14 15:22 | DVHDSRES ---
Discharge Summary Date of Admission Resident Creating Document: MELBA ASHLEY RESIDENT Apr 11, 2024 at 21:12 Date of Discharge: Apr 14, 2024 Admitting Diagnosis pneumomediastinum and pneumothorax. Labs/Diagnostic Data: Laboratory Results Test 04/14/24 10:36 04/12/24 17:51 04/11/24 21:50 04/11/24 21:30 White Blood Count 5.6 10^3/uL (4.4-10.8) Red Blood Count 4.22 10^6/uL (4.0-5.20) Hemoglobin 12.2 g/dL (12.2-16.2) Hematocrit 37.2 % (36.0-46.0) Mean Corpuscular Volume 88.2 fL (80.0-100.0) Mean Corpuscular Hemoglobin 28.9 pg (28.0-32.0) Mean Corpuscular Hemoglobin Concent 32.7 g/dL (32.0-36.0) Red Cell Distribution Width 13.5 % (11.8-14.3) Platelet Count 250 10^3/uL (140-450) Mean Platelet Volume 9.7 fL (6.9-10.8) Neutrophils (%) (Auto) 60.0 % (37.0-80.0) Lymphocytes (%) (Auto) 25.2 % (10.0-50.0) Monocytes (%) (Auto) 6.9 % (0.0-12.0) Eosinophils (%) (Auto) 7.7 % (0.0-7.0) Basophils (%) (Auto) 0.2 % (0.0-2.0) Neutrophils # (Auto) 3.4 10 ^3/uL (1.6-8.6) Lymphocytes # (Auto) 1.4 10 ^3/uL (0.4-5.4) Monocytes # (Auto) 0.4 10 ^3/uL (0-1.3) Eosinophils # (Auto) 0.4 10 ^3/uL (0-0.8) Basophils # (Auto) 0 10 ^3/uL (0-0.2) Nucleated Red Blood Cells 0.1 % Sodium Level 138 mmol/L (136-145) Potassium Level 4.0 mmol/L (3.5-5.1) Chloride Level 108 mmol/L (98-107) Carbon Dioxide Level 24 mmol/L (20-31) Anion Gap 6 (5-15) Blood Urea Nitrogen < 5 mg/dL (9-23) Creatinine 0.65 mg/dL (0.550-1.02) Glomerular Filtration Rate Calc 124 mL/min (>90) BUN/Creatinine Ratio 7.7 (10.0-20.0) Serum Glucose 112 mg/dL (74-106) Calcium Level 9.4 mg/dL (8.7-10.4) Total Bilirubin 0.3 mg/dL (0.2-1.0) Aspartate Amino Transferase (AST) 26 U/L (13-40) Alanine Aminotransferase (ALT) 19 U/L (7-40) Alkaline Phosphatase 57 U/L (46-116) Total Protein 6.0 g/dL (5.7-8.2) Albumin 3.7 g/dL (3.2-4.8) Urine Color Yellow (Yellow) Urine Clarity Clear (Clear) Urine pH 6.0 (5.0-9.0) Urine Specific [place] 1.033 (1.001-1.035) Urine Protein 1+ (Negative) Urine Ketones 4+ (Negative) Urine Blood 2+ /uL (Negative) Urine Nitrite Negative (Negative) Urine Bilirubin Negative (Negative) Urine Urobilinogen 2 mg/dL (Negative) Urine Leukocyte Esterase Negative /uL (Negative) Urine RBC 2 /hpf (0 - 4) Urine WBC 5 /hpf (0 - 5) Urine Squamous Epithelial Cells Few /hpf (<5) Urine Bacteria Few /hpf (None Seen) Urine Mucus Few (None Seen) Urine Glucose Normal mg/dL (Normal) Urine Opiates Screen Neg (NEGATIVE) Urine Fentanyl Screen Neg (NEGATIVE) Urine Barbiturates Screen Neg (NEGATIVE) Urine Phencyclidine Screen Neg (NEGATIVE) Urine Amphetamines Screen Neg (NEGATIVE) Urine Benzodiazepines Screen Neg (NEGATIVE) Urine Cocaine Screen Neg (NEGATIVE) Urine Cannabinoids Screen Pos (NEGATIVE) Influenza Type A Antigen Negative (Negative) Influenza Type B Antigen Negative (Negative) SARS-CoV-2 Antigen (Rapid) Negative (NEGATIVE) Erythrocyte Sedimentation Rate 25 mm/hr (0-20) C-Reactive Protein High Sensitivity 0.98 mg/dL (<1.0) B-Type Natriuretic Peptide 11.12 pg/mL (0-100) Thyroid Stimulating Hormone (TSH) 0.60 uIU/mL (0.55-4.78) Beta HCG, Quantitative 0.6 mIU/mL (1.5-4.2) Other Laboratory Tests 04/14/24 10:36 Brief Hx & Hospital Course: A 24-year-old female with no significant past medical history presented with left upper quadrant pain and shortness of breath for three days. Imaging revealed pneumomediastinum and a trace right pneumothorax, likely secondary to alveolar rupture, as well as mild bronchial wall thickening and scattered pulmonary nodules suggestive of atypical pneumonia. The patient was managed with supplemental oxygen to aid reabsorption of the pneumothorax and pneumomediastinum, AB for presumed pneumonia, and supportive care. The pneumothorax has resolved, and the pneumomediastinum is improving. The patient was counseled on nicotine dependence and advised to follow up in the clinic with a CT scan in 8 weeks. Discharged with home antibiotics for continued management. General Appearance: Alert, Oriented X3, Cooperative, mild distress HEENT: Atraumatic, PERRLA, EOMI, Mucous membr. moist/pink Respiratory: Other (Decreased breath sounds on the right) Cardiovascular: Regular rate, Normal S1, Normal S2, No murmurs Abdominal: Normal bowel sounds, Soft, No tenderness Extremities: No clubbing, No cyanosis, No edema, Normal pulses Skin: No rashes, No breakdown, No significant lesion Neuro: Normal speech, Strength at 5/5 X4 ext, Sensation intact Psych/Mental Status: Mental status NL, Mood NL Case discussed with Dr. Maria and Dr. Bautista. Consults/Reason for consult pulm due to pneumomediastinum and pneumothorax Operations or Procedures Procedure: CT CHEST WITH CONTRAST Reason for study/Clinical History: follow up imaging for pneumothorax, pneumomediastinum Comparison Study: CT chest/abdomen/ pelvis 04/11/2024 Exam Date: 04/14/2024 01:17 PM Radiation Dose Information: CT Dose: CTDI volume is 12.29 mGy. Dose-length product is 400.27 mGy*cm Contrast: 100 mL [id number] TECHNIQUE: After the uneventful administration of intravenous contrast intravenously, CT imaging was performed through the chest. Coronal and sagittal reformations were performed by the technologist. Images were reviewed at a workstation with MPR capabilities with review of coronal and sagittal MIP reconstructions. FINDINGS: Lower Neck: Visualized portions of the thyroid gland are unremarkable. Aorta and Vasculature: Normal caliber of thoracic aorta. No evidence of large or segmental pulmonary emboli. Lymph Nodes: No enlarged intrathoracic lymph nodes. Mediastinum: Heart size is normal. There is no pericardial effusion. There is a small amount of pneumomediastinum which is decreased compared to 04/11/2024. There is mild interspersed soft tissue density within the anterior mediastinum which is similar from prior. Lungs: 4 x 3 mm nodule at the right lung apex is similar from prior. A few small ground-glass nodules in the left lower lung are similar from prior. No evidence of new pulmonary consolidation. Musculoskeletal: No acute osseous abnormality. Upper abdomen: Status post cholecystectomy. IMPRESSION: Small amount of pneumomediastinum is decreased compared to 04/11/2024. No evidence of pneumothorax. Mild interspersed soft tissue density in the anterior mediastinum is similar from prior and likely represents residual thymic tissue. Mediastinitis is considered unlikely. Scattered pulmonary nodules are similar from prior and may be related to aspiration or atypical pneumonia. All CT scans at this medical facility are performed using dose modulation techniques as appropriate to a performed exam including the following: Automated exposure control was utilized; adjustment of the MA and/or KV according to patient size; and use of iterative reconstruction technique. Condition at Discharge: Stable Final Diagnosis/Problems List #Pneumomediastinum #Trace right pneumothorax # pneumonia gram +/ gram neg Discharge Disposition: Home Discharge Instruct/Medications Diet: Regular Activity: Light activity Follow Up/Referral: please arrange f/u with Dr Michele wellsmonolgi in his clinic Medications: resume home meds Discharge Statement: "Patient was advised to return to the ER or call 911 if any headaches, dizziness, shortness of breath, chest pain, abdominal pain, bleeding, fevers, or worsening of medical condition. Patient was counseled about treatment plan, medications, possible side effects, patientverbalized understanding. All questions were answered to the best of my ability. This discharge took greater then 30 minutes in planning, reviewing documentation, counseling the patient, and discussing with other team members." ASSESSMENT ASSESSMENT Assessment pneumomediastinum resolving pneumothorax resolved Date of Service: Apr 14, 2024 Billing Provider: DARLENE MARIA MD Common Visit Codes: 84205-QJE/OBS DISCH DAY >30min ADI HOOD RESIDENT Apr 14, 2024 15:22 DARLENE MARIA MD Apr 15, 2024 00:03
[2024-04-14] MEDS ORDERED: LEVO750T40 PO (15:47)
--- NOTE | 2024-04-14 23:30 | DVHPN2 ---
Progress Note - Dictate Date Seen: Apr 14, 2024 Has the PT tested + for MRSA If YES, has PT been informed?: No Medical Necessity Reason Pt with a Central, PICC or Fol: No Subjective Patient seen and examined at bedside. Remains on supplemental oxygen Overnight events reviewed. vital signs Vital Sign Date Time Temp Pulse Resp B/P (MAP) Pulse Ox O2 Delivery O2 Flow Rate FiO2 04/14/24 17:00 98.1 68 20 92/93 (93) 100 98.1 04/14/24 15:21 Nasal Cannula 2.0 04/14/24 15:21 28 Total Intake and Output 04/13/24 04/13/24 04/14/24 15:00 23:00 07:00 Intake Total 250 ml 620 ml 550 ml Balance 250 ml 620 ml 550 ml objective Gen.: Patient lying in bed in no apparent distress. On supplemental oxygen. Head: Normocephalic, atraumatic. Eyes: EOMI/PERRLA. Ears: Normal hearing. Normal anatomy. Neck/trachea: Trachea midline, supple. Nose: Normal external anatomy. Mouth: Moist mucous membranes. Chest: Decreased air entry bilaterally. No wheezing or rhonchi. Cardiovascular: Positive S1, positive S2. Regular rate and rhythm. Abdomen: Positive bowel sounds in all 4 quadrants. Soft, non-tender, non- distended. : Deferred. Rectal: Deferred. Skin: Warm, dry. Intact. Extremities: 2+ radial pulses bilaterally. No lower extremity edema. Neuro: Awake, alert, oriented x3. No gross motor or sensory deficits. Cranial nerves II through XII intact. Gait not assessed laboratory and microbiology Laboratory Tests 04/14/24 10:36 Test 04/14/24 10:36 Range/Units Serum Glucose 112 H 74-106 mg/dL Assessment/Plan Impression: Trace right pneumothorax Pneumomediastinum Nicotine dependence/vaping Obesity BMI 31.8 Atypical pneumonia O2 at 2 L for reabsorption of the pneumothorax and pneumomediastinum -please do not titrate down Events: Remains on supplemental oxygen, [address] chest with IV contrast reviewed, demonstrates improved pneumomediastinum. Pneumothorax is resolved. Patient is stable for discharge from the pulmonary standpoint. Continue bronchodilators Incentive spirometry Labs and imaging reviewed. Rest of plan as noted below. Plan: Supplemental oxygen 2 LPM NC Keep O2 sats between 98-100%. CT chest, abdomen and pelvis: Pneumomediastinum. This could be spontaneous in the setting of alveolar rupture and air dissection from the pulmonary interstitium to the mediastinum in the setting of increased intrathoracic pressure. Mild bronchial wall thickening which could be infectious or inflammatory bronchitis. Scattered bilateral pulmonary nodules as well as cluster of tree-in-bud nodular opacities in the left lower lobe, likely atypical pneumonia. Bronchodilators PRN Completed antibiotics for atypical pneumonia Incentive spirometry Pain control Avoid oversedation Cessation of vaping discussed for more than 10 minutes Monitor renal function. Monitor electrolytes. Supplement as necessary. Monitor ins and outs. DVT prophylaxis. Prognosis: Guarded given patient's multiple co-morbidities. Rest of plan per hospitalist and other consultants. Thank you, Dr. Guerrero, for allowing me to participate in this patient's care. Further recommendations will depend on the patient's clinical course. Please do not hesitate to contact me if you have any questions or concerns. This medical document was created using an electronic medical record system with [employer] computerized dictation system. Although these documentations are being carefully reviewed, there may still be some phonetic and typographical changes. The errors are purely typographical, due to imperfection on the software program, and do not reflect any compromise in the patient's medical care. Plan discussed with: Patient, Other (ROGERS Martinez) GUS DALE MD Apr 14, 2024 23:30
== END 2024-04-14 19:59 | disposition home or self-care (01) | DRG 199 ==
LOC: ER 18:23 → TELE 21:12 → TELE-WESTW 04-12 03:44 → WEST WING 04-14 03:41
PROVIDERS: ADMIT Internal Medicine; ATTEND Internal Medicine
DX: J98.2 Interstitial emphysema (principal); J15.69 Pneumonia due to other Gram-negative bacteria; J15.9 Unspecified bacterial pneumonia; J93.9 Pneumothorax, unspecified; F17.210 Nicotine dependence, cigarettes, uncomplicated; Z20.822 Contact with and (suspected) exposure to COVID-19; E66.9 Obesity, unspecified; Z68.31 Body mass index [BMI] 31.0-31.9, adult; Z90.49 Acquired absence of other specified parts of digestive tract; Z83.3 Family history of diabetes mellitus
CPT/HCPCS: 36415; 71250; 71260; 74176; 74220; 80048; 80053; 80307; 81001; 83880; 84443; 84702; 85025; 85652; 86141; 87426; 87804; 94640; G0378